=== PATIENT | male | born 1940 | race Caucasian/White ===

== ENCOUNTER 2023-08-19 11:42 | Outpatient (CLI) | payer MEDICARE ==
[~2023-08-19 11:42] MED LIST: Iopamidol 300 61% 100 ML VIAL FS ONE
== END 2023-08-19 11:43 | disposition home or self-care (01) ==
LOC: CSHCT 11:42
PROVIDERS: ATTEND Family Medicine
DX: R93.89 Abnormal findings on diagnostic imaging of other specified body structures (principal); J44.9 Chronic obstructive pulmonary disease, unspecified; R91.8 Other nonspecific abnormal finding of lung field; J98.4 Other disorders of lung
CPT/HCPCS: 71260; 82565; 94060; 94726; 94729; 94760; Q9967